=== PATIENT | male | born 1945 | race Caucasian/White ===

== ENCOUNTER 2018-02-21 08:48 | Emergency (ER) | payer MEDICARE ==
[~2018-02-21] VITALS: Ht 170.2 cm; Wt 113.7 kg
[2018-02-21 08:52] VITALS: BP 120/74
[2018-02-21] MEDS ORDERED: HYDROcodone/APAP 5/325 TABLET PO ONE (09:30)
[2018-02-21] MEDS ORDERED: HYDROcodone/APAP 5/325 TABLET ONE (09:43)
[2018-02-21] MEDS ORDERED: ALBUTEROL/IPRATROPIUM 2.5MG/0.5MG, 3 ML ONE (09:52)
[2018-02-21] MEDS: ALBUTEROL/IPRATROPIUM 2.5MG/0.5MG, 3 ML NPPB SCH ×2 (09:55→09:57)
== END 2018-02-21 10:26 | disposition home or self-care (01) ==
LOC: ED 09:30
DX: J45.31 Mild persistent asthma with (acute) exacerbation (principal); M10.072 Idiopathic gout, left ankle and foot; I10 Essential (primary) hypertension
CPT/HCPCS: 36415; 73630; 84550; 94640; 99285; J7512; J7620

== ENCOUNTER 2019-05-19 14:35 | Emergency (ER) | payer MEDICARE ==
[~2019-05-19] VITALS: Ht 167.6 cm; Wt 108.8 kg
[2019-05-19 14:36] VITALS: BP 133/50
--- NOTE | 2019-05-19 15:03 | NUR ---
PT REPORTS LEFT FOOT PAIN PT STATES "I HAVE GOUT." PT'S AOX4. RESPS EVEN AND UNLABORED.
--- NOTE | 2019-05-19 15:12 | NUR ---
Patient given discharge instructions and they have confirmed that they understand the instructions. Patient ambulatory with steady gait.
== END 2019-05-19 15:14 | disposition home or self-care (01) ==
LOC: ED 15:08
DX: M10.072 Idiopathic gout, left ankle and foot (principal); M79.672 Pain in left foot; I10 Essential (primary) hypertension
CPT/HCPCS: 99281